=== PATIENT | male | born 1945 | race Caucasian/White ===

== ENCOUNTER 2017-07-01 22:17 | Emergency (ER) | payer OTHER ==
[~2017-07-01] VITALS: Ht 167.6 cm; Wt 68.5 kg
[2017-07-01 22:27] VITALS: BP 128/88
[2017-07-01 23:03] LABS: Basophils # (auto) 0 uL; Basophils % (auto) 0.7 % (0.0-2.0); Eosinophils # (auto) 0.2 uL; Eosinophils % (auto) 4.4 % (0.0-7.0); Hematocrit 40.8 % (41.0-53.0); Hemoglobin 13.8 g/dL (13.5-17.5); Lymphocytes # (auto) 1.2 uL; Lymphocytes % (auto) 25.6 % (10.0-50.0); Mean Corpuscular Hemoglobin 32.7 pg (28.0-32.0); Mean Corpuscular Hgb Conc. 33.9 g/dL (32.0-36.0); Mean Corpuscular Volume 96.5 fL (80.0-100.0); Monocytes # (auto) 0.6 uL; Monocytes % (auto) 13.2 % (0.0-12.0); Neutrophils # (auto) 2.6 uL; Neutrophils % (auto) 56.1 % (37.0-80.0); Platelet Count (auto) 111 10^3/uL (140-450); Red Blood Cells 4.23 10^6/uL (4.5-5.90); Red Cell Distribution Width 15.4 % (11.8-14.3); White Blood Cell 4.7 10^3/uL (4.4-10.8)
[2017-07-01 23:20] LABS: Albumin 3.6 g/dL (3.4-5.0); Calcium 9.5 mg/dL (8.5-10.1); Potassium 4.1 mmol/L (3.5-5.1)
[2017-07-01 23:22] LABS: BUN/Creatinine Ratio 17.3; Partial Thromboplastin Time 41.8 sec (22.64-33.71); Prothrombin Time 60.2 sec (9.37-12.3)
[2017-07-01 23:25] LABS: Bilirubin, Total 0.5 mg/dL (0.2-1.0); Total Protein 7.2 g/dL (6.4-8.2)
[2017-07-01 23:31] LABS: INR 5.43 (0.9-1.15)
[2017-07-02] MEDS ORDERED: OXYMETAZOLINE HCL 0.05 % NASAL SPRAY 15ML ONE (00:15)
[2017-07-02] MEDS ORDERED: PHENYLEPHRINE HCL 10 MG/ML VL ONE (00:40)
[2017-07-02] MEDS ORDERED: fentaNYL CITRATE 100 MCG/2 ML VL ONE (00:59)
[2017-07-02] MEDS ORDERED: PHYTONADIONE (VIT K)10 MG/ML 1ML VIAL SUBCUT ONE (01:00)
[2017-07-02] MEDS ORDERED: fentaNYL CITRATE 100 MCG/2 ML VL IV ONE ×2 (01:00)
== END 2017-07-02 02:22 | disposition home or self-care (01) ==
LOC: ER 22:23
DX: R04.0 Epistaxis (principal); T45.511A Poisoning by anticoagulants, accidental (unintentional), initial encounter; I48.91 Unspecified atrial fibrillation; E11.9 Type 2 diabetes mellitus without complications; I25.2 Old myocardial infarction; I11.0 Hypertensive heart disease with heart failure; I50.9 Heart failure, unspecified; Z98.61 Coronary angioplasty status; Z88.0 Allergy status to penicillin; Y92.89 Other specified places as the place of occurrence of the external cause
CPT/HCPCS: 30901; 36415; 80053; 85025; 85610; 85730; 93005; 96372; 99285; J2370; J3010; J3430

== ENCOUNTER 2020-09-21 02:17 | Inpatient (IN) | payer OTHER ==
[~2020-09-21] VITALS: Ht 172.7 cm; Wt 86.5 kg
[2020-09-21 02:53] LABS: Basophils # (auto) 0.1 10 ^3/uL (0-0.2); Basophils % (auto) 1.6 % (0.0-2.0); Eosinophils # (auto) 0.1 10 ^3/uL (0-0.8); Eosinophils % (auto) 1.3 % (0.0-7.0); Hematocrit 36.9 % (41.0-53.0); Hemoglobin 12.3 g/dL (13.5-17.5); Lymphocytes # (auto) 1.3 10 ^3/uL (0.4-5.4); Lymphocytes % (auto) 17.2 % (10.0-50.0); Mean Corpuscular Hemoglobin 30.9 pg (28.0-32.0); Mean Corpuscular Hgb Conc. 33.2 g/dL (32.0-36.0); Mean Corpuscular Volume 92.9 fL (80.0-100.0); Monocytes # (auto) 0.4 10 ^3/uL (0-1.3); Monocytes % (auto) 4.9 % (0.0-12.0); Neutrophils # (auto) 5.5 10 ^3/uL (1.6-8.6); Red Blood Cells 3.97 10^6/uL (4.5-5.90); Red Cell Distribution Width 20.7 % (11.8-14.3); White Blood Cell 7.4 10^3/uL (4.4-10.8)
[2020-09-21 03:01] LABS: Alanine Aminotransferase 85 U/L (16-61); Albumin 3.2 g/dL (3.4-5.0); Anion Gap 8 (5-15); Aspartate Aminotransferase 131 U/L (15-37); BUN/Creatinine Ratio 14.1; Blood Alcohol < 3.0 mg/dL (0-5); Blood Urea Nitrogen 41 mg/dL (7-18); Calcium 9.5 mg/dL (8.5-10.1); Carbon Dioxide 26 mmol/L (21-32); Chloride 110 mmol/L (98-107); GFR African American 27 mL/min; GFR Non-African American 23 mL/min; Glucose 132 mg/dL (74-106); Magnesium 2.7 mg/dL (1.6-2.6); Sodium 144 mmol/L (136-145)
[2020-09-21 03:04] LABS: Lactic Acid w/Reflex 2.2 mmol/L (0.4-2.0)
[2020-09-21 03:06] LABS: Alkaline Phosphatase 150 U/L (45-117); Bilirubin, Total 0.5 mg/dL (0.2-1.0); Total Protein 6.6 g/dL (6.4-8.2)
[2020-09-21] MEDS ORDERED: ASPirin 325 MG TAB PO ONE (04:15)
[2020-09-21 06:10] LABS: Urine Bacteria NONE SEEN /hpf (None Seen); Urine Blood Negative /uL (Negative); Urine Hyaline Cast FEW /lpf (0 - 2); Urine Mucus FEW (None Seen); Urine Specific Gravity 1.007 (1.001-1.035); Urine WBC 9 /hpf (0 - 3)
[2020-09-21 06:22] LABS: Alcohol, Urine < 3.0 mg/dL (0-10); Amphetamine Screen, Urine NEGATIVE (NEGATIVE); Barbiturate Scree,Urine NEGATIVE (NEGATIVE); Benzodiazephine Screen, Urine NEGATIVE (NEGATIVE); Cannabinoid Screen, Urine NEGATIVE (NEGATIVE); Cocaine Screen, Urine NEGATIVE (NEGATIVE); Opiate Scree,Urine NEGATIVE (NEGATIVE); Phencyclidine Screen, Urine NEGATIVE (NEGATIVE)
[2020-09-21] MEDS ORDERED: NITROGLYCERIN 0.4 MG SL TAB SL PRN (06:30)
[2020-09-21] MEDS ORDERED: MORPHINE SULF INJ 2 MG/ML SYRINGE 1ML IV PRN (06:30)
[2020-09-21] MEDS ORDERED: ONDANSETRON HCL 4 MG/2 ML VIAL IV PRN (06:30)
[2020-09-21 07:36] LABS: INR 2.91 (0.9-1.15); Partial Thromboplastin Time 35.2 sec (23.0-31.2)
[2020-09-21 09:20] VITALS: BP 116/75
[2020-09-21] MEDS ORDERED: PANTOPRAZOLE 40 MG TAB PO SCH (10:00)
[2020-09-21] MEDS ORDERED: FUROSEMIDE 20 MG TAB PO SCH (10:00)
[2020-09-21] MEDS ORDERED: ENOXAPARIN SOD 30 MG/0.3 ML SYRINGE SC SCH (10:59)
[2020-09-21] MEDS: ENOXAPARIN SOD 30 MG/0.3 ML SYRINGE SC SCH (11:50)
[2020-09-21] MEDS: AMIODARONE HCL 200 MG TAB PO SCH (11:51)
[2020-09-21] MEDS: LEVOTHYROXINE SODIUM 50 MCG TAB PO SCH (11:52)
[2020-09-21 12:30] VITALS: BP 120/90
[2020-09-21 17:00] VITALS: BP 115/79
[2020-09-21] MEDS ORDERED: TAMSULOSIN HYDROCHLORIDE 0.4 MG CAP PO SCH (18:00)
[2020-09-21 20:48] LABS: Urine Bacteria NONE SEEN /hpf (None Seen); Urine Blood Negative /uL (Negative); Urine Hyaline Cast FEW /lpf (0 - 2); Urine Specific Gravity 1.013 (1.001-1.035); Urine WBC 1 /hpf (0 - 3)
[2020-09-21 21:01] LABS: Protein, Urine 11.2 mg/dL (0.0-11.9)
[2020-09-21 22:00] VITALS: BP 105/78
[2020-09-21] MEDS ORDERED: ATORVASTATIN 20 MG TAB PO SCH (22:00)
[2020-09-21] MEDS: METOPROLOL TARTRATE 25 MG TAB PO SCH (23:00)
[2020-09-22] VITALS (79 sets, daily range): BP systolic 72–136; BP diastolic 44–99
[2020-09-22] MEDS ORDERED: ETOMIDATE (2MG/ML) 20ML VIAL IV ONE (03:37)
[2020-09-22] MEDS ORDERED: SUCCINYLCHOLINE CHLORIDE 20 MG/ML 10ML VIAL IV ONE (03:38)
[2020-09-22] MEDS ORDERED: NOREPINEPHRINE 8 MG/250ML KIT 250 ML IV ONE (03:46)
[2020-09-22] MEDS: NOREPINEPHRINE 8 MG/250ML KIT 250 ML IV SCH ×3 (03:57→23:27)
[2020-09-22] MEDS ORDERED: ALBUMIN 5% 250 ML IV ONE ×2 (03:58→04:15)
[2020-09-22] MEDS: MIDAZOLAM DRIP 50 mg/50mL 50 ML IV SCH ×3 (04:00→20:13)
[2020-09-22] MEDS ORDERED: MIDAZOLAM DRIP 50 mg/50mL 50 ML IV ONE (04:04)
[2020-09-22] MEDS ORDERED: dilTIAZem 25 MG/5 ML VIAL IV ONE ×2 (04:15→04:19)
[2020-09-22 04:25] LABS: Basophils # (auto) 0.1 10 ^3/uL (0-0.2); Basophils % (auto) 0.9 % (0.0-2.0); Eosinophils # (auto) 0.1 10 ^3/uL (0-0.8); Eosinophils % (auto) 1.4 % (0.0-7.0); Hematocrit 41.9 % (41.0-53.0); Lymphocytes # (auto) 2.6 10 ^3/uL (0.4-5.4); Lymphocytes % (auto) 41.3 % (10.0-50.0); Mean Corpuscular Hemoglobin 31.1 pg (28.0-32.0); Mean Corpuscular Hgb Conc. 33.4 g/dL (32.0-36.0); Mean Corpuscular Volume 93.2 fL (80.0-100.0); Monocytes # (auto) 0.5 10 ^3/uL (0-1.3); Monocytes % (auto) 8.5 % (0.0-12.0); Neutrophils # (auto) 3.1 10 ^3/uL (1.6-8.6); Neutrophils % (auto) 47.9 % (37.0-80.0); Nucleated Red Blood Cells % 0.3 %; White Blood Cell 6.4 10^3/uL (4.4-10.8)
[2020-09-22 04:34] LABS: Red Cell Distribution Width 21.5 % (11.8-14.3)
[2020-09-22] MEDS ORDERED: AMIODARONE 450mg/250ml AE 250 ML IV ONE ×2 (04:34→06:11)
[2020-09-22 04:46] LABS: Albumin 3.9 g/dL (3.4-5.0); Calcium 9.5 mg/dL (8.5-10.1); Potassium 4.3 mmol/L (3.5-5.1)
[2020-09-22 04:56] LABS: BUN/Creatinine Ratio 15.6; Bilirubin, Total 0.8 mg/dL (0.2-1.0); Phosphorus 3.2 mg/dL (2.5-4.90); Total Protein 7.2 g/dL (6.4-8.2)
[2020-09-22] MEDS ORDERED: EPINEPHrine HCL 1 MG/10 ML SYRG ONE (05:00)
[2020-09-22] MEDS: SODIUM CHLORIDE 0.9% 1,000 ML IV SCH ×2 (06:00→20:49)
[2020-09-22] MEDS ORDERED: DOPamine 1600MCG/ML D5W 250 ML IV ONE (06:14)
[2020-09-22] MEDS ORDERED: EPINEPHrine HCL 250 ML IV ONE (06:19)
[2020-09-22] MEDS ORDERED: AMIODARONE 450mg/250ml AE 250 ML IV SCH (06:30)
[2020-09-22] MEDS: EPINEPHrine HCL 250 ML IV SCH (06:30)
[2020-09-22] MEDS: LEVOTHYROXINE SODIUM 50 MCG TAB PO SCH (07:00)
[2020-09-22] MEDS: AMIODARONE HCL 200 MG TAB PO SCH ×2 (10:00→22:00)
[2020-09-22] MEDS: ENOXAPARIN SOD 30 MG/0.3 ML SYRINGE SC SCH (10:00)
[2020-09-22] MEDS ORDERED: ASPirin 81 mg TAB PO SCH (10:00)
[2020-09-22] MEDS: METOPROLOL TARTRATE 25 MG TAB PO SCH ×2 (10:00→22:00)
[2020-09-22] MEDS ORDERED: PANTOPRAZOLE 40 MG/10 ML VIAL INJ IV ONE (10:45)
[2020-09-22] MEDS ORDERED: FUROSEMIDE 40 MG/4 ML VIAL IV ONE (10:45)
[2020-09-22] MEDS ORDERED: FUROSEMIDE 40 MG/4 ML VIAL ONE (10:48)
[2020-09-22] MEDS: PANTOPRAZOLE 40 MG/10 ML VIAL INJ IV SCH (10:57)
[2020-09-22 11:28] LABS: Hemoglobin 11.5 g/dL (13.5-17.5)
[2020-09-22] MEDS: AMIODARONE 450mg/250ml AE 250 ML IV SCH ×2 (12:30→20:14)
[2020-09-22] MEDS ORDERED: LIDOCAINE HCL 100 MG/5ML (2%) SYRG INJ IV ONE (13:58)
[2020-09-22] MEDS ORDERED: CALCIUM CHLOR(10%) 100MG/ML 10ML SYRINGE IV ONE (13:58)
[2020-09-22] MEDS ORDERED: SODIUM BICARBONATE 8.4% INJ 50ML SYRINGE IV ONE (13:58)
[2020-09-22] MEDS ORDERED: EPINEPHrine HCL 1 MG/10 ML SYRG IV ONE (13:58)
[2020-09-22] MEDS: ACETAMINOPHEN 650 MG RECT SUPP PR PRN (14:19)
[2020-09-22 15:50] LABS: INR 2.16 (0.9-1.15); Partial Thromboplastin Time 31.6 sec (23.0-31.2)
[2020-09-22] MEDS: MEROPENEM 500MG IVPB 50 ML IV SCH (18:14)
[2020-09-22] MEDS: FUROSEMIDE 40 MG/4 ML VIAL IV SCH (18:14)
[2020-09-22] MEDS ORDERED: metroNIDAZOLE 500MG/100ML 100 ML IV SCH (22:00)
[2020-09-23] VITALS (104 sets, daily range): BP systolic 11–137; BP diastolic 43–105
[2020-09-23] MEDS: MIDAZOLAM DRIP 50 mg/50mL 50 ML IV SCH ×2 (00:35→17:35)
[2020-09-23] MEDS: fentaNYL Drip 2500mCg/250mlNS 250 ML IV SCH ×2 (01:15→18:15)
[2020-09-23] MEDS: MEROPENEM 500MG IVPB 50 ML IV SCH ×2 (05:24→17:34)
[2020-09-23] MEDS: FUROSEMIDE 40 MG/4 ML VIAL IV SCH ×2 (05:26→18:42)
[2020-09-23] MEDS: EPINEPHrine HCL 250 ML IV SCH (06:30)
[2020-09-23] MEDS: LEVOTHYROXINE SODIUM 50 MCG TAB PO SCH (06:59)
[2020-09-23 08:48] LABS: Basophils # (auto) 0 10 ^3/uL (0-0.2); Basophils % (auto) 0.3 % (0.0-2.0); Eosinophils # (auto) 0 10 ^3/uL (0-0.8); Eosinophils % (auto) 0.1 % (0.0-7.0); Monocytes # (auto) 0.4 10 ^3/uL (0-1.3)
[2020-09-23 08:50] LABS: Hematocrit 28.1 % (41.0-53.0); Hemoglobin 9.9 g/dL (13.5-17.5); Lymphocytes # (auto) 0.5 10 ^3/uL (0.4-5.4); Lymphocytes % (auto) 4.5 % (10.0-50.0); Mean Corpuscular Hemoglobin 31.8 pg (28.0-32.0); Mean Corpuscular Hgb Conc. 35.1 g/dL (32.0-36.0); Mean Corpuscular Volume 90.7 fL (80.0-100.0); Monocytes % (auto) 3.9 % (0.0-12.0); Neutrophils # (auto) 9.5 10 ^3/uL (1.6-8.6); Neutrophils % (auto) 91.2 % (37.0-80.0); White Blood Cell 10.4 10^3/uL (4.4-10.8)
[2020-09-23 08:51] LABS: Red Cell Distribution Width 20.7 % (11.8-14.3)
[2020-09-23 09:15] LABS: BUN/Creatinine Ratio 16.5; Calcium 8.6 mg/dL (8.5-10.1); Potassium 3.3 mmol/L (3.5-5.1)
[2020-09-23] MEDS: AMIODARONE HCL 200 MG TAB PO SCH ×2 (10:00→22:00)
[2020-09-23] MEDS: METOPROLOL TARTRATE 25 MG TAB PO SCH ×2 (10:00→22:00)
[2020-09-23] MEDS: ENOXAPARIN SOD 30 MG/0.3 ML SYRINGE SC SCH (10:14)
[2020-09-23] MEDS: PANTOPRAZOLE 40 MG/10 ML VIAL INJ IV SCH (10:14)
[2020-09-23] MEDS ORDERED: POTASSIUM CHLORIDE 20 MEQ, LIDOCAINE 1% (LOCAL ANESTH.) 2 ML in SODIUM CHL 0.9% 100 ML IV ONE (11:30)
[2020-09-23] MEDS: ACETAMINOPHEN 650 MG RECT SUPP PR PRN (12:30)
[2020-09-23 13:24] LABS: INR 2.82 (0.9-1.15); Partial Thromboplastin Time 43.8 sec (23.0-31.2)
[2020-09-23] MEDS: AMIODARONE 450mg/250ml AE 250 ML IV SCH (18:30)
[2020-09-24] VITALS (109 sets, daily range): BP systolic 44–153; BP diastolic 31–83
[2020-09-24] MEDS: NOREPINEPHRINE 8 MG/250ML KIT 250 ML IV SCH (04:25)
[2020-09-24 05:23] LABS: Basophils # (auto) 0 10 ^3/uL (0-0.2); Basophils % (auto) 0.3 % (0.0-2.0); Eosinophils # (auto) 0.1 10 ^3/uL (0-0.8); Eosinophils % (auto) 0.7 % (0.0-7.0); Hematocrit 28.9 % (41.0-53.0); Hemoglobin 10.2 g/dL (13.5-17.5); Lymphocytes # (auto) 0.5 10 ^3/uL (0.4-5.4); Lymphocytes % (auto) 5.3 % (10.0-50.0); Mean Corpuscular Hgb Conc. 35.3 g/dL (32.0-36.0); Mean Corpuscular Volume 90.6 fL (80.0-100.0); Monocytes # (auto) 0.3 10 ^3/uL (0-1.3); Monocytes % (auto) 3.9 % (0.0-12.0); Neutrophils % (auto) 89.8 % (37.0-80.0); Nucleated Red Blood Cells % 0.1 %; Red Blood Cells 3.19 10^6/uL (4.5-5.90); White Blood Cell 8.9 10^3/uL (4.4-10.8)
[2020-09-24 05:33] LABS: Red Cell Distribution Width 21.1 % (11.8-14.3)
[2020-09-24] MEDS: MEROPENEM 500MG IVPB 50 ML IV SCH ×2 (05:33→17:52)
[2020-09-24 05:39] LABS: INR 2.77 (0.9-1.15); Partial Thromboplastin Time 44.6 sec (23.0-31.2)
[2020-09-24] MEDS: FUROSEMIDE 40 MG/4 ML VIAL IV SCH ×2 (05:41→17:26)
[2020-09-24 05:43] LABS: Potassium 3.5 mmol/L (3.5-5.1)
[2020-09-24 05:51] LABS: Albumin 2.9 g/dL (3.4-5.0); BUN/Creatinine Ratio 17.6; Calcium 8.7 mg/dL (8.5-10.1); Magnesium 2.4 mg/dL (1.6-2.6); Total Protein 5.7 g/dL (6.4-8.2)
[2020-09-24] MEDS: EPINEPHrine HCL 250 ML IV SCH (08:28)
[2020-09-24 09:28] LABS: Basophils # (auto) 0 10 ^3/uL (0-0.2); Eosinophils # (auto) 0 10 ^3/uL (0-0.8); Eosinophils % (auto) 0.2 % (0.0-7.0); Hemoglobin 8.6 g/dL (13.5-17.5); Lymphocytes # (auto) 0.2 10 ^3/uL (0.4-5.4); Monocytes # (auto) 0.3 10 ^3/uL (0-1.3); Monocytes % (auto) 4.4 % (0.0-12.0); Neutrophils % (auto) 92.5 % (37.0-80.0); Nucleated Red Blood Cells % 0.1 %; White Blood Cell 7.4 10^3/uL (4.4-10.8)
[2020-09-24 09:31] LABS: Basophils % (auto) 0.2 % (0.0-2.0); Hematocrit 24.8 % (41.0-53.0); Lymphocytes % (auto) 2.7 % (10.0-50.0); Mean Corpuscular Hemoglobin 31.7 pg (28.0-32.0); Mean Corpuscular Hgb Conc. 34.7 g/dL (32.0-36.0); Mean Corpuscular Volume 91.3 fL (80.0-100.0); Neutrophils # (auto) 6.9 10 ^3/uL (1.6-8.6); Red Blood Cells 2.72 10^6/uL (4.5-5.90)
[2020-09-24 09:45] LABS: Albumin 2.3 g/dL (3.4-5.0); Calcium 7.1 mg/dL (8.5-10.1); Magnesium 1.8 mg/dL (1.6-2.6)
[2020-09-24 09:48] LABS: BUN/Creatinine Ratio 18.9; Bilirubin, Total 1.5 mg/dL (0.2-1.0); Total Protein 4.6 g/dL (6.4-8.2)
[2020-09-24 09:55] LABS: Potassium 2.9 mmol/L (3.5-5.1)
[2020-09-24] MEDS: METOPROLOL TARTRATE 25 MG TAB PO SCH (10:00)
[2020-09-24] MEDS ORDERED: MAGNESIUM SULFATE 1GM/100ML 100 ML IV ONE ×2 (10:15→10:21)
[2020-09-24] MEDS ORDERED: POTASSIUM CHL 20MEQ/100ML 100 ML IV ONE (10:20)
[2020-09-24] MEDS ORDERED: phytonadione 10 MG in SODIUM CHL 0.9% 50 ML IV ONE (10:30)
[2020-09-24] MEDS: PANTOPRAZOLE 40 MG/10 ML VIAL INJ IV SCH (10:36)
[2020-09-24] MEDS: LEVOTHYROXINE SODIUM 50 MCG TAB PO SCH ×2 (10:36→10:37)
[2020-09-24] MEDS: AMIODARONE HCL 200 MG TAB PO SCH (10:37)
[2020-09-24] MEDS ORDERED: ACETYLCYSTEINE ORAL for CIN 20%(200MG/ML) 4ML GT ONE (10:45)
[2020-09-24] MEDS ORDERED: LEVOTHYROXINE SODIUM 100 MCG/5 ML INJ IV ONE (10:45)
[2020-09-24] MEDS: POTASSIUM CHL 20MEQ/100ML 100 ML IV SCH ×3 (10:49→15:25)
[2020-09-24] MEDS: fentaNYL Drip 2500mCg/250mlNS 250 ML IV SCH (12:00)
[2020-09-24] MEDS ORDERED: POTASSIUM PHOSPHATE 44 MEQ in D5W 5% 250 ML IV ONE (12:00)
[2020-09-24] MEDS ORDERED: EPINEPHrine HCL 1 MG/10 ML SYRG IV ONE (12:24)
[2020-09-24] MEDS ORDERED: LIDOCAINE HCL 100 MG/5ML (2%) SYRG INJ IV ONE (12:38)
[2020-09-24] MEDS: MIDAZOLAM DRIP 50 mg/50mL 50 ML IV SCH ×3 (12:58→23:49)
[2020-09-24] MEDS: MEXILETINE HYDROCHLORIDE 150 MG CAP NG SCH ×2 (14:15→22:20)
[2020-09-24] MEDS: AMIODARONE 450mg/250ml AE 250 ML IV SCH (15:02)
[2020-09-24] MEDS ORDERED: methylPREDNISolone SOD SUCC 125 MG/2 ML VL IV PRN (16:45)
[2020-09-24] MEDS ORDERED: diphenhdrAMINE HCL 50 MG/1 ML VL IV PRN ×2 (16:45→17:00)
[2020-09-24] MEDS ORDERED: diphenhdrAMINE HCL 50 MG/1 ML VL ONE (16:54)
[2020-09-24] MEDS ORDERED: methylPREDNISolone SOD SUCC 125 MG/2 ML VL ONE (16:54)
[2020-09-24] MEDS ORDERED: methylPREDNISolone SOD SUCC 125 MG/2 ML VL IV ONE (17:30)
[2020-09-24 19:11] LABS: INR 1.37 (0.9-1.15)
[2020-09-24] MEDS: ACETYLCYSTEINE ORAL for CIN 20%(200MG/ML) 4ML GT SCH (22:20)
[2020-09-25] VITALS (90 sets, daily range): BP systolic 88–142; BP diastolic 57–108
[2020-09-25] MEDS: AMIODARONE 450mg/250ml AE 250 ML IV SCH ×2 (04:43→18:39)
[2020-09-25] MEDS: MIDAZOLAM DRIP 50 mg/50mL 50 ML IV SCH ×5 (04:43→19:43)
[2020-09-25] MEDS: NOREPINEPHRINE 8 MG/250ML KIT 250 ML IV SCH (04:44)
[2020-09-25] MEDS: fentaNYL Drip 2500mCg/250mlNS 250 ML IV SCH (04:57)
[2020-09-25] MEDS: MEROPENEM 500MG IVPB 50 ML IV SCH (04:58)
[2020-09-25 05:55] LABS: Basophils # (auto) 0 10 ^3/uL (0-0.2); Eosinophils # (auto) 0 10 ^3/uL (0-0.8); Hematocrit 26.4 % (41.0-53.0); Hemoglobin 9.4 g/dL (13.5-17.5); Mean Corpuscular Hgb Conc. 35.6 g/dL (32.0-36.0); Monocytes # (auto) 0.1 10 ^3/uL (0-1.3)
[2020-09-25 05:57] LABS: Basophils % (auto) 0.6 % (0.0-2.0); Lymphocytes # (auto) 0.1 10 ^3/uL (0.4-5.4); Lymphocytes % (auto) 2.6 % (10.0-50.0); Mean Corpuscular Hemoglobin 32.4 pg (28.0-32.0); Mean Corpuscular Volume 90.9 fL (80.0-100.0); Monocytes % (auto) 1.8 % (0.0-12.0); Neutrophils # (auto) 5.2 10 ^3/uL (1.6-8.6); Nucleated Red Blood Cells % 0.4 %; White Blood Cell 5.5 10^3/uL (4.4-10.8)
[2020-09-25] MEDS: SODIUM CHLORIDE 0.9% 1,000 ML IV SCH ×2 (05:59→22:17)
[2020-09-25] MEDS: FUROSEMIDE 40 MG/4 ML VIAL IV SCH ×2 (06:00→19:41)
[2020-09-25] MEDS: MEXILETINE HYDROCHLORIDE 150 MG CAP NG SCH ×3 (06:00→22:20)
[2020-09-25] MEDS: EPINEPHrine HCL 250 ML IV SCH (06:00)
[2020-09-25 06:03] LABS: Red Cell Distribution Width 20.8 % (11.8-14.3)
[2020-09-25 06:09] LABS: Calcium 8.7 mg/dL (8.5-10.1); Potassium 4.4 mmol/L (3.5-5.1)
[2020-09-25 06:12] LABS: BUN/Creatinine Ratio 16.9
[2020-09-25] MEDS: LEVOTHYROXINE SODIUM 100 MCG/5 ML INJ IV SCH (10:10)
[2020-09-25] MEDS: ACETYLCYSTEINE ORAL for CIN 20%(200MG/ML) 4ML GT SCH ×2 (10:12→22:20)
[2020-09-25] MEDS: PANTOPRAZOLE 40 MG/10 ML VIAL INJ IV SCH (10:13)
[2020-09-25] MEDS ORDERED: IODIXANOL 320MG/ML 100ML BTL IV ONE ×2 (13:47→14:17)
[2020-09-25] MEDS ORDERED: ANGIOMAX 250 MG VIAL IV ONE ×2 (14:18→14:56)
[2020-09-25] MEDS ORDERED: fentaNYL CITRATE 100 MCG/2 ML VL ONE (14:18)
[2020-09-25] MEDS ORDERED: SODIUM CHL 0.9% 0 ML ONE ×2 (14:19→14:56)
[2020-09-25] MEDS ORDERED: MIDAZOLAM HCL 1MG/1ML-2 ML VIAL ONE (14:19)
[2020-09-25] MEDS ORDERED: ADENOSINE 90 MG/30 ML INJ IV ONE (14:58)
[2020-09-26] VITALS (102 sets, daily range): BP systolic 87–129; BP diastolic 35–81
[2020-09-26] MEDS: NOREPINEPHRINE 8 MG/250ML KIT 250 ML IV SCH ×2 (04:15→22:01)
[2020-09-26 05:22] LABS: Basophils # (auto) 0 10 ^3/uL (0-0.2); Basophils % (auto) 0.1 % (0.0-2.0); Eosinophils # (auto) 0 10 ^3/uL (0-0.8); Hematocrit 25.3 % (41.0-53.0); Hemoglobin 8.9 g/dL (13.5-17.5); Lymphocytes # (auto) 0.3 10 ^3/uL (0.4-5.4); Lymphocytes % (auto) 2.4 % (10.0-50.0); Mean Corpuscular Hemoglobin 32.2 pg (28.0-32.0); Mean Corpuscular Hgb Conc. 35.1 g/dL (32.0-36.0); Mean Corpuscular Volume 91.7 fL (80.0-100.0); Monocytes # (auto) 0.5 10 ^3/uL (0-1.3); Monocytes % (auto) 4.9 % (0.0-12.0); Neutrophils # (auto) 9.6 10 ^3/uL (1.6-8.6); Neutrophils % (auto) 92.6 % (37.0-80.0); Nucleated Red Blood Cells % 0.6 %; Red Blood Cells 2.76 10^6/uL (4.5-5.90); White Blood Cell 10.4 10^3/uL (4.4-10.8)
[2020-09-26 05:38] LABS: Red Cell Distribution Width 21.1 % (11.8-14.3)
[2020-09-26] MEDS: MEXILETINE HYDROCHLORIDE 150 MG CAP NG SCH ×3 (05:44→22:01)
[2020-09-26 05:45] LABS: Urine Bacteria NONE SEEN /hpf (None Seen); Urine Blood TRACE /uL (Negative); Urine Hyaline Cast FEW /lpf (0 - 2); Urine Mucus FEW (None Seen); Urine Specific Gravity 1.025 (1.001-1.035); Urine WBC 2 /hpf (0 - 3)
[2020-09-26] MEDS: FUROSEMIDE 40 MG/4 ML VIAL IV SCH ×2 (05:45→18:15)
[2020-09-26 05:49] LABS: BUN/Creatinine Ratio 18.3; Calcium 8.9 mg/dL (8.5-10.1); Potassium 4.2 mmol/L (3.5-5.1)
[2020-09-26] MEDS: EPINEPHrine HCL 250 ML IV SCH (06:03)
[2020-09-26] MEDS: PANTOPRAZOLE 40 MG/10 ML VIAL INJ IV SCH (09:22)
[2020-09-26] MEDS: LEVOTHYROXINE SODIUM 100 MCG/5 ML INJ IV SCH (09:22)
[2020-09-26] MEDS: ACETYLCYSTEINE ORAL for CIN 20%(200MG/ML) 4ML GT SCH (09:23)
[2020-09-26] MEDS: MIDAZOLAM DRIP 50 mg/50mL 50 ML IV SCH ×3 (09:23→18:15)
[2020-09-26] MEDS: AMIODARONE 450mg/250ml AE 250 ML IV SCH (09:30)
[2020-09-26] MEDS ORDERED: Jevity 1.2 Cal/Fiber 1 Liter GT SCH (10:15)
[2020-09-26] MEDS: FREE WATER GT SCH ×2 (11:54→18:15)
[2020-09-26] MEDS ORDERED: HEPARIN DRIP/D5W 100UNITS/ML 250 ML IV SCH (12:45)
[2020-09-26 13:35] LABS: INR 1.12 (0.9-1.15); Partial Thromboplastin Time 23.2 sec (23.0-31.2)
[2020-09-26] MEDS: fentaNYL Drip 2500mCg/250mlNS 250 ML IV SCH (18:16)
[2020-09-26 22:28] LABS: INR 1.08 (0.9-1.15); Partial Thromboplastin Time 23.1 sec (23.0-31.2)
[2020-09-27] VITALS (96 sets, daily range): BP systolic 91–151; BP diastolic 51–99
[2020-09-27] MEDS: FREE WATER GT SCH ×5 (00:02→23:43)
[2020-09-27] MEDS: AMIODARONE 450mg/250ml AE 250 ML IV SCH ×2 (01:02→17:06)
[2020-09-27] MEDS: MIDAZOLAM DRIP 50 mg/50mL 50 ML IV SCH ×4 (01:03→18:32)
[2020-09-27 05:15] LABS: Basophils # (auto) 0 10 ^3/uL (0-0.2); Basophils % (auto) 0.1 % (0.0-2.0); Eosinophils # (auto) 0 10 ^3/uL (0-0.8); Eosinophils % (auto) 0.3 % (0.0-7.0); Hematocrit 26.6 % (41.0-53.0); Hemoglobin 9.1 g/dL (13.5-17.5); Lymphocytes # (auto) 0.6 10 ^3/uL (0.4-5.4); Lymphocytes % (auto) 7.4 % (10.0-50.0); Mean Corpuscular Hemoglobin 31.8 pg (28.0-32.0); Mean Corpuscular Hgb Conc. 34.4 g/dL (32.0-36.0); Mean Corpuscular Volume 92.4 fL (80.0-100.0); Monocytes # (auto) 0.9 10 ^3/uL (0-1.3); Neutrophils # (auto) 6.5 10 ^3/uL (1.6-8.6); Neutrophils % (auto) 81.2 % (37.0-80.0); Nucleated Red Blood Cells % 0.7 %; Red Blood Cells 2.88 10^6/uL (4.5-5.90); White Blood Cell 8.1 10^3/uL (4.4-10.8)
[2020-09-27 05:29] LABS: Red Cell Distribution Width 21.3 % (11.8-14.3)
[2020-09-27 05:37] LABS: Calcium 9.1 mg/dL (8.5-10.1); Potassium 3.6 mmol/L (3.5-5.1)
[2020-09-27 05:40] LABS: BUN/Creatinine Ratio 20.3
[2020-09-27] MEDS: EPINEPHrine HCL 250 ML IV SCH (06:19)
[2020-09-27] MEDS: FUROSEMIDE 40 MG/4 ML VIAL IV SCH ×2 (06:27→18:32)
[2020-09-27] MEDS: MEXILETINE HYDROCHLORIDE 150 MG CAP NG SCH ×3 (06:27→21:16)
[2020-09-27 06:34] LABS: INR 1.16 (0.9-1.15)
[2020-09-27 06:35] LABS: Partial Thromboplastin Time 123.3 sec (23.0-31.2)
[2020-09-27] MEDS: LEVOTHYROXINE SODIUM 100 MCG/5 ML INJ IV SCH (09:34)
[2020-09-27] MEDS: PANTOPRAZOLE 40 MG/10 ML VIAL INJ IV SCH (09:34)
[2020-09-27] MEDS: ASPirin 81 mg TAB PO SCH (13:00)
[2020-09-27 14:09] LABS: INR 1.13 (0.9-1.15)
[2020-09-27 14:10] LABS: Partial Thromboplastin Time 97.7 sec (23.0-31.2)
[2020-09-27] MEDS: fentaNYL Drip 2500mCg/250mlNS 250 ML IV SCH (18:15)
[2020-09-27] MEDS: HEPARIN DRIP/D5W 100UNITS/ML 250 ML IV SCH (20:58)
[2020-09-27] MEDS: ATORVASTATIN 20 MG TAB PO SCH (21:16)
[2020-09-27 21:34] LABS: INR 1.12 (0.9-1.15); Partial Thromboplastin Time 45.3 sec (23.0-31.2)
[2020-09-28] VITALS (98 sets, daily range): BP systolic 84–134; BP diastolic 47–77
[2020-09-28] MEDS: MIDAZOLAM DRIP 50 mg/50mL 50 ML IV SCH ×3 (00:05→17:21)
[2020-09-28] MEDS: fentaNYL Drip 2500mCg/250mlNS 250 ML IV SCH ×2 (01:57→17:18)
[2020-09-28] MEDS: ACETAMINOPHEN 650 MG RECT SUPP PR PRN ×2 (04:12→20:29)
[2020-09-28 04:14] LABS: Basophils # (auto) 0 10 ^3/uL (0-0.2); Basophils % (auto) 0.3 % (0.0-2.0); Eosinophils # (auto) 0 10 ^3/uL (0-0.8); Eosinophils % (auto) 0.5 % (0.0-7.0); Hematocrit 27.1 % (41.0-53.0); Hemoglobin 9.5 g/dL (13.5-17.5); Lymphocytes # (auto) 0.6 10 ^3/uL (0.4-5.4); Lymphocytes % (auto) 5.6 % (10.0-50.0); Mean Corpuscular Hemoglobin 32.6 pg (28.0-32.0); Mean Corpuscular Volume 93.1 fL (80.0-100.0); Monocytes # (auto) 0.8 10 ^3/uL (0-1.3); Monocytes % (auto) 8.1 % (0.0-12.0); Neutrophils # (auto) 8.7 10 ^3/uL (1.6-8.6); Neutrophils % (auto) 85.5 % (37.0-80.0); Nucleated Red Blood Cells % 0.4 %; Red Blood Cells 2.91 10^6/uL (4.5-5.90); White Blood Cell 10.2 10^3/uL (4.4-10.8)
[2020-09-28 04:15] LABS: Red Cell Distribution Width 21.4 % (11.8-14.3)
[2020-09-28] MEDS: NOREPINEPHRINE 8 MG/250ML KIT 250 ML IV SCH ×2 (04:15→07:38)
[2020-09-28 04:30] LABS: INR 1.15 (0.9-1.15); Partial Thromboplastin Time 58.5 sec (23.0-31.2)
[2020-09-28 04:34] LABS: BUN/Creatinine Ratio 21.8; Calcium 9.1 mg/dL (8.5-10.1); Potassium 3.5 mmol/L (3.5-5.1)
[2020-09-28] MEDS: FREE WATER GT SCH ×3 (06:02→17:22)
[2020-09-28] MEDS: FUROSEMIDE 40 MG/4 ML VIAL IV SCH ×2 (06:03→11:45)
[2020-09-28] MEDS: MEXILETINE HYDROCHLORIDE 150 MG CAP NG SCH ×3 (06:03→20:28)
[2020-09-28] MEDS: EPINEPHrine HCL 250 ML IV SCH (06:30)
[2020-09-28] MEDS: AMIODARONE 450mg/250ml AE 250 ML IV SCH ×2 (07:36→22:25)
[2020-09-28] MEDS: PANTOPRAZOLE 40 MG/10 ML VIAL INJ IV SCH (09:32)
[2020-09-28] MEDS: LEVOTHYROXINE SODIUM 100 MCG/5 ML INJ IV SCH (09:33)
[2020-09-28] MEDS: ASPirin 81 mg TAB PO SCH (10:00)
[2020-09-28 10:40] LABS: INR 1.2 (0.9-1.15)
[2020-09-28 10:46] LABS: Partial Thromboplastin Time 80.6 sec (23.0-31.2)
[2020-09-28] MEDS ORDERED: POTASSIUM CHL 20MEQ/100ML 100 ML IV ONE (11:45)
[2020-09-28 13:04] LABS: Potassium 3.4 mmol/L (3.5-5.1)
[2020-09-28 13:13] LABS: BUN/Creatinine Ratio 21.6; Calcium 8.9 mg/dL (8.5-10.1)
[2020-09-28 16:54] LABS: INR 1.22 (0.9-1.15); Partial Thromboplastin Time 47.5 sec (23.0-31.2)
[2020-09-28] MEDS: ATORVASTATIN 20 MG TAB PO SCH (20:29)
[2020-09-28 22:56] LABS: INR 1.22 (0.9-1.15); Partial Thromboplastin Time 57.1 sec (23.0-31.2)
[2020-09-29] VITALS (98 sets, daily range): BP systolic 86–140; BP diastolic 52–74
[2020-09-29] MEDS: FREE WATER GT SCH ×5 (01:52→23:15)
[2020-09-29] MEDS: HEPARIN DRIP/D5W 100UNITS/ML 250 ML IV SCH ×2 (01:54→15:15)
[2020-09-29 05:14] LABS: Basophils # (auto) 0 10 ^3/uL (0-0.2); Basophils % (auto) 0.4 % (0.0-2.0); Eosinophils # (auto) 0.1 10 ^3/uL (0-0.8); Eosinophils % (auto) 2.1 % (0.0-7.0); Hematocrit 26.4 % (41.0-53.0); Hemoglobin 8.9 g/dL (13.5-17.5); Lymphocytes # (auto) 0.6 10 ^3/uL (0.4-5.4); Lymphocytes % (auto) 7.6 % (10.0-50.0); Mean Corpuscular Hemoglobin 31.7 pg (28.0-32.0); Mean Corpuscular Hgb Conc. 33.6 g/dL (32.0-36.0); Mean Corpuscular Volume 94.2 fL (80.0-100.0); Monocytes # (auto) 0.7 10 ^3/uL (0-1.3); Monocytes % (auto) 9.5 % (0.0-12.0); Neutrophils # (auto) 5.8 10 ^3/uL (1.6-8.6); Neutrophils % (auto) 80.4 % (37.0-80.0); Nucleated Red Blood Cells % 0.6 %; Red Blood Cells 2.81 10^6/uL (4.5-5.90); White Blood Cell 7.2 10^3/uL (4.4-10.8)
[2020-09-29 05:19] LABS: Red Cell Distribution Width 21.6 % (11.8-14.3)
[2020-09-29 05:31] LABS: INR 1.23 (0.9-1.15); Partial Thromboplastin Time 68.4 sec (23.0-31.2)
[2020-09-29] MEDS: MEXILETINE HYDROCHLORIDE 150 MG CAP NG SCH ×3 (05:45→21:53)
[2020-09-29] MEDS: FUROSEMIDE 40 MG/4 ML VIAL IV SCH (05:45)
[2020-09-29] MEDS: EPINEPHrine HCL 250 ML IV SCH (06:30)
[2020-09-29] MEDS: ASPirin 81 mg TAB PO SCH (07:55)
[2020-09-29] MEDS: LEVOTHYROXINE SODIUM 100 MCG/5 ML INJ IV SCH (09:20)
[2020-09-29] MEDS: PANTOPRAZOLE 40 MG/10 ML VIAL INJ IV SCH (09:20)
[2020-09-29] MEDS ORDERED: DOPamine 1600MCG/ML D5W 250 ML IV SCH (10:45)
[2020-09-29 11:15] LABS: INR 1.24 (0.9-1.15)
[2020-09-29] MEDS: POTASSIUM CHL 20MEQ/100ML 100 ML IV SCH ×2 (11:25→12:45)
[2020-09-29] MEDS: AMIODARONE 450mg/250ml AE 250 ML IV SCH (11:36)
[2020-09-29] MEDS: fentaNYL Drip 2500mCg/250mlNS 250 ML IV SCH (18:15)
[2020-09-29] MEDS: ATORVASTATIN 20 MG TAB PO SCH (21:54)
[2020-09-30] VITALS (103 sets, daily range): BP systolic 81–145; BP diastolic 47–130
[2020-09-30] MEDS: AMIODARONE 450mg/250ml AE 250 ML IV SCH ×2 (03:12→17:46)
[2020-09-30] MEDS: HEPARIN DRIP/D5W 100UNITS/ML 250 ML IV SCH (03:23)
[2020-09-30] MEDS: NOREPINEPHRINE 8 MG/250ML KIT 250 ML IV SCH (04:15)
[2020-09-30] MEDS: MIDAZOLAM DRIP 50 mg/50mL 50 ML IV SCH ×2 (04:25→21:15)
[2020-09-30] MEDS: FREE WATER GT SCH ×3 (06:19→17:47)
[2020-09-30] MEDS: EPINEPHrine HCL 250 ML IV SCH (06:19)
[2020-09-30] MEDS: MEXILETINE HYDROCHLORIDE 150 MG CAP NG SCH ×3 (06:19→21:14)
[2020-09-30] MEDS: FUROSEMIDE 40 MG/4 ML VIAL IV SCH (06:19)
[2020-09-30] MEDS: ACETAMINOPHEN 650 MG RECT SUPP PR PRN (08:34)
[2020-09-30 09:08] LABS: Basophils # (auto) 0 10 ^3/uL (0-0.2); Eosinophils # (auto) 0.1 10 ^3/uL (0-0.8); Hemoglobin 7.1 g/dL (13.5-17.5); Lymphocytes # (auto) 0.4 10 ^3/uL (0.4-5.4); Lymphocytes % (auto) 6.5 % (10.0-50.0); Neutrophils # (auto) 4.9 10 ^3/uL (1.6-8.6); Nucleated Red Blood Cells % 0.2 %
[2020-09-30 09:11] LABS: Basophils % (auto) 0.4 % (0.0-2.0); Mean Corpuscular Hemoglobin 31.6 pg (28.0-32.0); Mean Corpuscular Hgb Conc. 33.7 g/dL (32.0-36.0); Mean Corpuscular Volume 93.7 fL (80.0-100.0); Monocytes # (auto) 0.6 10 ^3/uL (0-1.3); Monocytes % (auto) 9.5 % (0.0-12.0); Neutrophils % (auto) 81.6 % (37.0-80.0); Red Blood Cells 2.25 10^6/uL (4.5-5.90); White Blood Cell 6.1 10^3/uL (4.4-10.8)
[2020-09-30 09:13] LABS: Red Cell Distribution Width 22.7 % (11.8-14.3)
[2020-09-30 09:30] LABS: BUN/Creatinine Ratio 21.4; Calcium 6.9 mg/dL (8.5-10.1)
[2020-09-30] MEDS: LEVOTHYROXINE SODIUM 100 MCG/5 ML INJ IV SCH (09:35)
[2020-09-30] MEDS: PANTOPRAZOLE 40 MG/10 ML VIAL INJ IV SCH (09:35)
[2020-09-30] MEDS: ASPirin 81 mg TAB PO SCH (09:36)
[2020-09-30] MEDS ORDERED: POTASSIUM CHL 20MEQ/100ML 100 ML IV ONE ×2 (10:13→20:15)
[2020-09-30] MEDS ORDERED: MAGNESIUM SULFATE 1GM/100ML 100 ML IV ONE (10:15)
[2020-09-30] MEDS: POTASSIUM CHL 20MEQ/100ML 100 ML IV SCH ×3 (10:38→14:38)
[2020-09-30] MEDS ORDERED: LIDOCAINE 50MG/5ML INJ 5ML SYRINGE IV ONE (10:45)
[2020-09-30 11:04] LABS: INR 1.2 (0.9-1.15); Partial Thromboplastin Time 56.8 sec (23.0-31.2)
[2020-09-30] MEDS: SOD CHL 0.45% WITH 20MEQ KCL 1,000 ML IV SCH ×2 (11:15→20:43)
[2020-09-30] MEDS ORDERED: AMIODARONE HCL (50 MG/ ML) 3 ML VIAL IV ONE (12:31)
[2020-09-30] MEDS: LIDOCAINE 4MG/ML IV SOLN 500 ML IV SCH (17:46)
[2020-09-30] MEDS: fentaNYL Drip 2500mCg/250mlNS 250 ML IV SCH (18:15)
[2020-09-30] MEDS: ATORVASTATIN 20 MG TAB PO SCH (20:43)
[2020-10-01] VITALS (98 sets, daily range): BP systolic 83–136; BP diastolic 55–97
[2020-10-01] MEDS: FREE WATER GT SCH ×4 (01:40→18:00)
[2020-10-01] MEDS: ACETAMINOPHEN 650 MG RECT SUPP PR PRN (02:17)
[2020-10-01] MEDS: NOREPINEPHRINE 8 MG/250ML KIT 250 ML IV SCH (04:15)
[2020-10-01] MEDS: MIDAZOLAM DRIP 50 mg/50mL 50 ML IV SCH ×2 (04:33→21:58)
[2020-10-01 05:09] LABS: Basophils # (auto) 0 10 ^3/uL (0-0.2); Basophils % (auto) 0.4 % (0.0-2.0); Eosinophils # (auto) 0.1 10 ^3/uL (0-0.8); Eosinophils % (auto) 1.2 % (0.0-7.0); Hematocrit 26.6 % (41.0-53.0); Hemoglobin 8.8 g/dL (13.5-17.5); Lymphocytes # (auto) 0.4 10 ^3/uL (0.4-5.4); Lymphocytes % (auto) 5.7 % (10.0-50.0); Mean Corpuscular Hemoglobin 31.5 pg (28.0-32.0); Mean Corpuscular Volume 95.3 fL (80.0-100.0); Monocytes # (auto) 0.7 10 ^3/uL (0-1.3); Monocytes % (auto) 8.5 % (0.0-12.0); Neutrophils # (auto) 6.5 10 ^3/uL (1.6-8.6); Neutrophils % (auto) 84.2 % (37.0-80.0); Nucleated Red Blood Cells % 0.4 %; Red Blood Cells 2.78 10^6/uL (4.5-5.90); White Blood Cell 7.7 10^3/uL (4.4-10.8)
[2020-10-01] MEDS: SOD CHL 0.45% WITH 20MEQ KCL 1,000 ML IV SCH (05:27)
[2020-10-01] MEDS: MEXILETINE HYDROCHLORIDE 150 MG CAP NG SCH ×3 (05:28→21:57)
[2020-10-01 05:33] LABS: INR 1.29 (0.9-1.15); Potassium 5.3 mmol/L (3.5-5.1)
[2020-10-01 05:40] LABS: Partial Thromboplastin Time 76.6 sec (23.0-31.2)
[2020-10-01 05:42] LABS: BUN/Creatinine Ratio 17.9; Calcium 9.2 mg/dL (8.5-10.1)
[2020-10-01 05:56] LABS: Red Cell Distribution Width 22.5 % (11.8-14.3)
[2020-10-01] MEDS: EPINEPHrine HCL 250 ML IV SCH (06:30)
[2020-10-01] MEDS: FUROSEMIDE 40 MG/4 ML VIAL IV SCH (07:00)
[2020-10-01] MEDS: ASPirin 81 mg TAB PO SCH (10:00)
[2020-10-01] MEDS: PANTOPRAZOLE 40 MG/10 ML VIAL INJ IV SCH (10:20)
[2020-10-01] MEDS: AMIODARONE 450mg/250ml AE 250 ML IV SCH (10:20)
[2020-10-01] MEDS: LEVOTHYROXINE SODIUM 100 MCG/5 ML INJ IV SCH (10:21)
[2020-10-01 12:06] LABS: INR 1.36 (0.9-1.15); Partial Thromboplastin Time 43.7 sec (23.0-31.2)
[2020-10-01] MEDS: HEPARIN DRIP/D5W 100UNITS/ML 250 ML IV SCH (15:15)
[2020-10-01] MEDS: LIDOCAINE 4MG/ML IV SOLN 500 ML IV SCH (17:02)
[2020-10-01] MEDS: fentaNYL Drip 2500mCg/250mlNS 250 ML IV SCH ×2 (18:15→22:00)
[2020-10-01 18:56] LABS: INR 1.38 (0.9-1.15); Partial Thromboplastin Time 69.7 sec (23.0-31.2)
[2020-10-01] MEDS ORDERED: HEPARIN DRIP/D5W 100UNITS/ML 250 ML IV SCH (19:15)
[2020-10-01] MEDS: ATORVASTATIN 20 MG TAB PO SCH (21:58)
[2020-10-02] VITALS (76 sets, daily range): BP systolic 106–156; BP diastolic 68–123
[2020-10-02] MEDS: AMIODARONE 450mg/250ml AE 250 ML IV SCH ×2 (00:34→12:30)
[2020-10-02] MEDS: FREE WATER GT SCH ×2 (00:35→05:33)
[2020-10-02 01:13] LABS: INR 1.44 (0.9-1.15); Partial Thromboplastin Time 69.8 sec (23.0-31.2)
[2020-10-02] MEDS: NOREPINEPHRINE 8 MG/250ML KIT 250 ML IV SCH (04:15)
[2020-10-02] MEDS: LIDOCAINE 4MG/ML IV SOLN 500 ML IV SCH (04:18)
[2020-10-02 05:26] LABS: Basophils # (auto) 0 10 ^3/uL (0-0.2); Basophils % (auto) 0.2 % (0.0-2.0); Eosinophils # (auto) 0.1 10 ^3/uL (0-0.8); Eosinophils % (auto) 0.6 % (0.0-7.0); Hematocrit 28.9 % (41.0-53.0); Hemoglobin 9.5 g/dL (13.5-17.5); Lymphocytes # (auto) 0.7 10 ^3/uL (0.4-5.4); Lymphocytes % (auto) 6.9 % (10.0-50.0); Mean Corpuscular Hemoglobin 31.3 pg (28.0-32.0); Mean Corpuscular Volume 94.7 fL (80.0-100.0); Monocytes # (auto) 0.9 10 ^3/uL (0-1.3); Neutrophils # (auto) 8.5 10 ^3/uL (1.6-8.6); Neutrophils % (auto) 83.3 % (37.0-80.0); Nucleated Red Blood Cells % 0.3 %; Red Blood Cells 3.05 10^6/uL (4.5-5.90); White Blood Cell 10.2 10^3/uL (4.4-10.8)
[2020-10-02] MEDS: ACETAMINOPHEN 650 MG RECT SUPP PR PRN (05:34)
[2020-10-02] MEDS: MEXILETINE HYDROCHLORIDE 150 MG CAP NG SCH ×2 (05:34→14:01)
[2020-10-02 06:06] LABS: Potassium 5.1 mmol/L (3.5-5.1)
[2020-10-02 06:13] LABS: BUN/Creatinine Ratio 15.6; Calcium 9.5 mg/dL (8.5-10.1)
[2020-10-02 06:22] LABS: Red Cell Distribution Width 22.3 % (11.8-14.3)
[2020-10-02] MEDS: EPINEPHrine HCL 250 ML IV SCH (06:30)
[2020-10-02] MEDS: FUROSEMIDE 40 MG/4 ML VIAL IV SCH (08:32)
[2020-10-02] MEDS: PANTOPRAZOLE 40 MG/10 ML VIAL INJ IV SCH (08:33)
[2020-10-02] MEDS: LEVOTHYROXINE SODIUM 100 MCG/5 ML INJ IV SCH (08:33)
[2020-10-02] MEDS: ASPirin 81 mg TAB PO SCH (08:33)
[2020-10-02 09:37] LABS: INR 1.47 (0.9-1.15); Partial Thromboplastin Time 60.6 sec (23.0-31.2)
== END 2020-10-02 17:37 | disposition short-term general hospital (02) | DRG 870 ==
LOC: ER 02:17 → EDBD 02:17 → TELE 06:19 → TELE-EAST 09:01 → DOU IN ICU 09-22 04:09
PROVIDERS: ADMIT Nurse Practitioner; ATTEND Internal Medicine Pulmonary Disease
PROC: 5A1955Z Respiratory Ventilation, Greater than 96 Consecutive Hours (ICD-10-PCS; principal; 2020-09-22)
PROC: 30233N1 Transfusion of Nonautologous Red Blood Cells into Peripheral Vein, Percutaneous Approach (ICD-10-PCS; 2020-09-22)
PROC: 30233L1 Transfusion of Nonautologous Fresh Plasma into Peripheral Vein, Percutaneous Approach (ICD-10-PCS; 2020-09-22)
PROC: 0BH17EZ Insertion of Endotracheal Airway into Trachea, Via Natural or Artificial Opening (ICD-10-PCS; 2020-09-22)
PROC: 02HV33Z Insertion of Infusion Device into Superior Vena Cava, Percutaneous Approach (ICD-10-PCS; 2020-09-22)
PROC: 5A12012 Performance of Cardiac Output, Single, Manual (ICD-10-PCS; 2020-09-22)
PROC: 04HY32Z Insertion of Monitoring Device into Lower Artery, Percutaneous Approach (ICD-10-PCS; 2020-09-23)
PROC: 05H933Z Insertion of Infusion Device into Right Brachial Vein, Percutaneous Approach (ICD-10-PCS; 2020-09-24)
PROC: B54MZZA Ultrasonography of Right Upper Extremity Veins, Guidance (ICD-10-PCS; 2020-09-24)
PROC: 4A023N7 Measurement of Cardiac Sampling and Pressure, Left Heart, Percutaneous Approach (ICD-10-PCS; 2020-09-25)
PROC: B2111ZZ Fluoroscopy of Multiple Coronary Arteries using Low Osmolar Contrast (ICD-10-PCS; 2020-09-25)
PROC: 5A2204Z Restoration of Cardiac Rhythm, Single (ICD-10-PCS; 2020-09-30)
DX: A41.9 Sepsis, unspecified organism (principal); I21.4 Non-ST elevation (NSTEMI) myocardial infarction; N17.0 Acute kidney failure with tubular necrosis; G93.41 Metabolic encephalopathy; I46.9 Cardiac arrest, cause unspecified; I49.01 Ventricular fibrillation; J69.0 Pneumonitis due to inhalation of food and vomit; J96.00 Acute respiratory failure, unspecified whether with hypoxia or hypercapnia; K72.00 Acute and subacute hepatic failure without coma; I50.43 Acute on chronic combined systolic (congestive) and diastolic (congestive) heart failure; R57.0 Cardiogenic shock; I47.2 Ventricular tachycardia; D68.9 Coagulation defect, unspecified; N18.4 Chronic kidney disease, stage 4 (severe); G93.1 Anoxic brain damage, not elsewhere classified; K56.7 Ileus, unspecified; J98.11 Atelectasis; I13.0 Hypertensive heart and chronic kidney disease with heart failure and stage 1 through stage 4 chronic kidney disease, or unspecified chronic kidney disease; K80.00 Calculus of gallbladder with acute cholecystitis without obstruction; D64.9 Anemia, unspecified; E87.6 Hypokalemia; D69.6 Thrombocytopenia, unspecified; Z20.822 Contact with and (suspected) exposure to COVID-19; E78.5 Hyperlipidemia, unspecified; E11.22 Type 2 diabetes mellitus with diabetic chronic kidney disease; K59.00 Constipation, unspecified; I25.10 Atherosclerotic heart disease of native coronary artery without angina pectoris; Z88.0 Allergy status to penicillin; Z86.73 Personal history of transient ischemic attack (TIA), and cerebral infarction without residual deficits; Z95.0 Presence of cardiac pacemaker
CPT/HCPCS: 36415; 36600; 70450; 71045; 74021; 76705; 80048; 80053; 80307; 80320; 81001; 82570; 82805; 82962; 83605; 83735; 84100; 84132; 84156; 84300; 84443; 84484; 85014; 85018; 85025; 85049; 85610; 85730; 86850; 86900; 86901; 86920; 87040; 87070; 87081; 87205; 87426; 92950; 93005; 93306; 94002; 94003; 94640; 95819; 99152; 99153; A4618; C1769; C9113; G0378; J0153; J0171; J0330; J2001; J2185; J2250; J3430; J3480; J3490; J7060; Q9967